=== PATIENT | female | born 1955 | race Hispanic/Latino ===

== ENCOUNTER 2020-05-06 00:09 | Emergency (ER) | payer BC, MEDICARE ==
[2020-05-06] MEDS ORDERED: Labetalol HCl 100 MG/20 ML VIAL ONE (00:47)
[2020-05-06 00:54] LABS: #Basophils 0.1 thou/uL (0.0-0.2); #Eosinphils 0.2 thou/uL (0.0-0.7); #Monocytes 0.6 thou/uL (0.11-0.59); #Neutrophils 8.3 thou/uL (1.40-6.50); %Basophils 0.8 % (0.0-1.0); %Eosinophils 1.4 % (0.0-10.0); %Lymphocytes 18.1 % (21.0-51.0); %Monocytes 5.3 % (0.0-10.0); %Neutrophils 74.3 % (42.0-75.0); Hemoglobin 11.9 g/dL (12.0-16.0); Mean Corpuscular HGB CONC 33.5 g/dL (32.0-36.0); Mean Corpuscular Hemoglobin 31.2 pg (27.0-31.0); Mean Corpuscular Volume 93.2 fL (78.0-98.0); Mean Platelet Volume 8.8 fL (7.4-10.4); Platelet Count 367 thou/uL (130-400); RBC Distribution Width 12.8 % (11.5-14.5); Red Blood Cell (RBC) Count 3.83 mill/uL (4.20-5.40); White Blood Cell (WBC) Count 11.2 thou/uL (4.8-10.8)
[2020-05-06 01:06] LABS: ALT (SGPT) 34 U/L (8-55); AST (SGOT) 24 U/L (5-34); Albumin 4.5 g/dL (3.4-4.8); Alkaline Phosphatase 129 U/L (40-110); Anion Gap 16 mmol/L (10-20); BUN (Urea Nitrogen) 16 mg/dL (9.8-20.1); Bilirubin, Total 0.4 mg/dL (0.2-1.2); Calc. Creatinine Clearance 0 mL/min (70-130); Calcium 9.5 mg/dL (7.8-10.44); Carbon Dioxide 22 mmol/L (23-31); Chloride 105 mmol/L (98-107); Globulin 4.2 g/dL (2.4-3.5); Glucose 161 mg/dL (80-115); Potassium 3.8 mmol/L (3.5-5.1); Protein, Total 8.7 g/dL (5.8-8.1); Sodium 139 mmol/L (136-145)
[2020-05-06] MEDS ORDERED: Ibuprofen 800 MG TAB ONE (01:27)
[2020-05-06] MEDS ORDERED: Metoprolol Tartrate 25 MG TAB ONE (01:55)
[2020-05-06] MEDS ORDERED: hydrALAZINE 25 MG TAB ONE (01:55)
--- NOTE | 2020-05-06 07:23 | CT ---
PRELIMINARY REPORT/[facility]/EMERGENCY AFTER HOURS PROCEDURE: EXAM: CT Head Without Intravenous Contrast. CLINICAL HISTORY: HEADACHE STARTED 20-30 MINUTES AGO. PT HAS HX OF HTN. PT REPORTS EXPERIENCING CHILLS, DENIES FEVER AN D BODY ACHES. DENIES SORE THROAT, COUGH, AND SOB. TECHNIQUE: Axial computed tomography images of the head/brain without intravenous contrast. COMPARISON: None provided. FINDINGS: BRAIN: No acute intraparenchymal hemorrhage. No mass lesion. No CT evidence for acute territorial infarct. N o midline shift or extra-axial collection. VENTRICLES: No hydrocephalus. ORBITS: The orbits are unremarkable. SINUSES AND MASTOIDS: The paranasal sinuses and mastoid air cells are clear. SOFT TISSUES: No significant facial or scalp soft tissue swelling evident. No radiopaque foreign body is seen. BONES: No acute skull fracture. IMPRESSION: No acute intracranial abnormality. ELECTRONICALLY SIGNED BY: Bobo Gallardo MD May 06, 2020 1:53:29 AM SALES SUPPORT ADMINISTRATOR This report is intended for review by the ordering physician only, in accordance of law. If you recei ve this report in error, please call [facility] at [phone]. FINAL REPORT EMERGENCY AFTER HOURS CT BRAIN: I agree with the preliminary report provided by [facility]. No acute intracranial abnormality demonstrated. POS: BH
--- NOTE | 2020-05-06 07:40 | RAD ---
CHEST 1 VIEW: INDICATION: Headache. COMPARISON: None. FINDINGS: Lungs are clear. Heart size is normal. There are vascular calcifications involving the aortic arch. No pleural effusion or pneumothorax is evident. No acute osseous abnormality is noted. IMPRESSION: No acute abnormality. POS: BH
== END 2020-05-06 02:17 | disposition home or self-care (01) ==
LOC: ERS 00:09
DX: I10 Essential (primary) hypertension (principal)
CPT/HCPCS: 70450; 71045; 80053; 84484; 85025; 93005; 96374

== ENCOUNTER 2024-08-01 13:53 | Outpatient (CLI) | payer MEDICARE | END 2024-08-01 13:54 | disposition home or self-care (01) | LOC: BICMAMMO 13:53 | PROVIDERS: ATTEND Family Medicine | DX: Z12.31 Encounter for screening mammogram for malignant neoplasm of breast (principal); M85.80 Other specified disorders of bone density and structure, unspecified site; R92.1 Mammographic calcification found on diagnostic imaging of breast; M81.0 Age-related osteoporosis without current pathological fracture | CPT/HCPCS: 77063; 77067; 77080 ==